=== PATIENT | female | born 1950 | race Hispanic/Latino ===

== ENCOUNTER → 2023-12-02 | Outpatient (REF) | payer MEDICARE ==
[~2023-12-02] MED LIST: ASPIRIN81 MG PO; JARDIANCE10 MG PO; LEVOTHYROXINE50 MCG PO; LEXAPRO10 MG PO; LIPITOR10 MG PO; METFORMIN HCL500 M2 PO; SERTRALINE HCL50 MG PO; ZESTRIL10 MG PO
== END ==
LOC: US 08:50
PROVIDERS: ATTEND Family Medicine
DX: R22.9 Localized swelling, mass and lump, unspecified (principal); I10 Essential (primary) hypertension
CPT/HCPCS: 76705